=== PATIENT | male | born 1965 | race Caucasian/White ===

== ENCOUNTER 2024-12-01 06:32 | Day surgery (SDC) | payer OTHER ==
[2024-12-01] MEDS: Lactated Ringers 1,000 ML IV SCH (06:53)
[2024-12-01] MEDS ORDERED: fentaNYL 50 MCG/ML SDV ONE ×2 (07:00)
[2024-12-01] MEDS ORDERED: Ketamine 200 MG/20 ML MDV ONE (07:00)
[2024-12-01] MEDS ORDERED: Midazolam 1 MG/ML 2 ML SDV ONE ×2 (07:00)
[2024-12-01] MEDS ORDERED: Propofol 200 MG/20 ML SDV ONE ×2 (07:00)
[2024-12-01] MEDS ORDERED: ePHEDrine 50 MG/ML SDV ONE (07:00)
[2024-12-01] MEDS: Iopamidol 755 Mg/ML 100 ML Bottle IVPUSH ONE (11:10)
[2024-12-01] MEDS: Barium Sulfate w/v 2% Oral Susp 450 ML Bottle PO ONE (11:10)
== END 2024-12-01 11:25 | disposition home or self-care (01) ==
LOC: CC.SDS 06:32
PROVIDERS: ATTEND Family Medicine
DX: C20 Malignant neoplasm of rectum (principal); K29.50 Unspecified chronic gastritis without bleeding; K22.70 Barrett's esophagus without dysplasia; K31.7 Polyp of stomach and duodenum
CPT/HCPCS: 00813; 36415; 74177; 82378; 87077; J2250; J2704; J3010; J3490; J7120; Q9967